=== PATIENT | male | born 1975 | race Two or more races ===

== ENCOUNTER 2020-07-31 08:19 | Outpatient (REF) | payer OTHER, SELFPAY ==
[2020-07-31 09:49] LABS: MANUAL DIFF FLAG NO
[2020-07-31 09:55] LABS: Basophils Absolute Auto 0.1 X10*3/uL (0.0-0.2); Basophils Percent Auto 0.8 % (0-2); Eosinophils Absolute Auto 0.2 X10*3/uL (0.0-0.4); Eosinophils Percent Auto 2.7 % (0-4); Hematocrit 46.6 % (42-52); Hemoglobin 15.1 g/dl (14.0-18.0); Imm Gran Abs Auto 0.03 X10*3/uL (0.00-0.03); Imm Gran Pct Auto 0.5 % (0.0-0.4); Lymphocytes Absolute Auto 2.1 X10*3/uL (1.2-4.9); Lymphocytes Percent Auto 33.3 % (20-40); Mean Corpuscular HGB Conc 32.4 g/dl (31.0-36.0); Mean Corpuscular Hemoglobin 30.1 pg (27.0-33.0); Mean Corpuscular Volume 92.8 fL (80-98); Mean Platelet Volume 9.3 fL (9.4-12.4); Monocytes Absolute Auto 0.6 X10*3/uL (0.1-1.2); Monocytes Percent Auto 9.3 % (2-11); Neutrophils Absolute Auto 3.3 X10*3/uL (2.0-8.3); Neutrophils Percent Auto 53.4 % (45-73); Platelet Count 251 X10*3/uL (160-400); Red Blood Count 5.02 X10*6/uL (4.60-5.80); Red Cell Distribution Width 13.4 % (11.0-16.0); White Blood Count 6.3 X10*3/uL (4.8-10.8)
[2020-07-31 10:16] LABS: Alanine Aminotransferase 63 U/L (0-40); Albumin Level 4.3 g/dL (3.5-5.0); Alkaline Phosphatase 100 U/L (39-117); Anion Gap 13 (12-20); Aspartate Amino Transferase 33 U/L (5-37); Bilirubin Total 0.3 mg/dL (0.0-1.0); Blood Urea Nitrogen 16 mg/dL (9-16); C Reactive Protein 0.97 mg/dL (< or = 0.50); Calcium 9.5 mg/dL (8.4-10.2); Carbon Dioxide 26 mmol/L (22-29); Chloride 105 mmol/L (96-108); Estimated Glomerular Filt Rate > 60; Glucose Random 104 mg/dL (60-115); Potassium 4.1 mmol/L (3.3-5.1); Sodium 140 mmol/L (135-145); Total Protein 7.9 g/dL (6.5-8.0)
[2020-07-31 10:57] LABS: Erythrocyte Sedimentation Rate 14 MM/HR (0-15)
[2020-08-01 07:55] LABS: ~HepC Num1 0.08 S/CO (0.00-0.79); ~Hepatitis C Antibody Nonreactive (Nonreactive)
[2020-08-01 08:44] LABS: HBS Num1 1.33 mIU/mL (0-7.99); HBc Num1 0.07 S/CO (0.00-0.79); HBsAGNum1 0.16 S/CO (0.00-0.99); Hepatitis A Antibody IgM 0.17 Index (0-0.79); Hepatitis B Core Antibody Nonreactive (Nonreactive); Hepatitis B Surface Antigen Negative (Negative); ~Hepatitis A Antibody IgM Nonreactive (Nonreactive); ~Hepatitis B Surface Antibody NONREACTIVE (Nonreactive)
== END 2020-07-31 08:20 | disposition home or self-care (01) ==
LOC: HO.LAB 08:19
PROVIDERS: PCP Internal Medicine; Visit Provider Student in an Organized Health Care Education/Training Program
DX: L40.50 Arthropathic psoriasis, unspecified (principal); L40.9 Psoriasis, unspecified
CPT/HCPCS: 20610; 36415; 80053; 85025; 85652; 86140; 86481; 86704; 86706; 86709; 86803; 87071; 87073; 87205; 87340; 89060; 99212

== ENCOUNTER 2020-09-25 15:30 | Outpatient (REF) | payer OTHER, SELFPAY ==
[2020-09-25 17:02] LABS: MANUAL DIFF FLAG NO
[2020-09-25 17:05] LABS: Basophils Percent Auto 1.2 % (0-2); Eosinophils Percent Auto 1.2 % (0-4); Hematocrit 47.6 % (42-52); Hemoglobin 15.5 g/dl (14.0-18.0); Imm Gran Abs Auto 0.03 X10*3/uL (0.00-0.03); Imm Gran Pct Auto 0.9 % (0.0-0.4); Lymphocytes Absolute Auto 1.4 X10*3/uL (1.2-4.9); Lymphocytes Percent Auto 39.4 % (20-40); Mean Corpuscular HGB Conc 32.6 g/dl (31.0-36.0); Mean Corpuscular Hemoglobin 30.3 pg (27.0-33.0); Mean Platelet Volume 9.4 fL (9.4-12.4); Monocytes Absolute Auto 0.7 X10*3/uL (0.1-1.2); Monocytes Percent Auto 19.7 % (2-11); Neutrophils Absolute Auto 1.3 X10*3/uL (2.0-8.3); Neutrophils Percent Auto 37.6 % (45-73); Platelet Count 247 X10*3/uL (160-400); Red Blood Count 5.12 X10*6/uL (4.60-5.80); Red Cell Distribution Width 13.2 % (11.0-16.0); White Blood Count 3.5 X10*3/uL (4.8-10.8)
[2020-09-25 17:33] LABS: Alanine Aminotransferase 93 U/L (0-40); Albumin Level 4.6 g/dL (3.5-5.0); Alkaline Phosphatase 106 U/L (39-117); Anion Gap 13 (12-20); Aspartate Amino Transferase 52 U/L (5-37); Bilirubin Total 0.3 mg/dL (0.0-1.0); Blood Urea Nitrogen 10 mg/dL (9-16); C Reactive Protein 0.88 mg/dL (< or = 0.50); Calcium 9.7 mg/dL (8.4-10.2); Carbon Dioxide 28 mmol/L (22-29); Chloride 103 mmol/L (96-108); Estimated Glomerular Filt Rate > 60; Glucose Random 92 mg/dL (60-115); Sodium 140 mmol/L (135-145); Total Protein 8.5 g/dL (6.5-8.0)
[2020-09-25 18:08] LABS: Erythrocyte Sedimentation Rate 14 MM/HR (0-15)
== END 2020-09-25 15:31 | disposition home or self-care (01) ==
LOC: HO.LAB 15:30
PROVIDERS: PCP Internal Medicine; Visit Provider Student in an Organized Health Care Education/Training Program
DX: L40.50 Arthropathic psoriasis, unspecified (principal); L40.9 Psoriasis, unspecified; I10 Essential (primary) hypertension
CPT/HCPCS: 36415; 80053; 85025; 85652; 86140; 99212

== ENCOUNTER 2021-02-11 10:21 | Outpatient (REF) | payer OTHER, SELFPAY ==
[2021-02-11 11:24] LABS: MANUAL DIFF FLAG NO
[2021-02-11 11:46] LABS: Basophils Percent Auto 0.7 % (0-2); Eosinophils Absolute Auto 0.3 X10*3/uL (0.0-0.4); Eosinophils Percent Auto 5.2 % (0-4); Hematocrit 46.6 % (42.0-52.0); Hemoglobin 15.4 g/dl (14.0-18.0); Imm Gran Abs Auto 0.03 X10*3/uL (0.00-0.03); Imm Gran Pct Auto 0.5 % (0.0-0.4); Lymphocytes Percent Auto 33.1 % (20-40); Mean Corpuscular Hemoglobin 30.6 pg (27.0-33.0); Mean Corpuscular Volume 92.5 fL (80.0-98.0); Mean Platelet Volume 9.1 fL (9.4-12.4); Monocytes Absolute Auto 0.5 X10*3/uL (0.1-1.2); Neutrophils Absolute Auto 3.1 x10*3/uL (2.0-8.3); Neutrophils Percent Auto 52.5 % (45-73); Platelet Count 249 X10*3/uL (160-400); Red Blood Count 5.04 X10*6/uL (4.60-5.80); Red Cell Distribution Width 13.2 % (11.0-16.0)
[2021-02-11 12:14] LABS: Alanine Aminotransferase 85 U/L (0-40); Albumin Level 4.3 g/dL (3.5-5.0); Alkaline Phosphatase 91 U/L (39-117); Anion Gap 10 (12-20); Aspartate Amino Transferase 36 U/L (5-37); Bilirubin Total 0.3 mg/dL (0.0-1.0); Blood Urea Nitrogen 13 mg/dL (9-16); Calcium 9.2 mg/dL (8.4-10.2); Carbon Dioxide 28 mmol/L (22-29); Chloride 105 mmol/L (96-108); Estimated Glomerular Filt Rate > 60; Glucose Random 95 mg/dL (60-115); Sodium 139 mmol/L (135-145); Total Protein 7.9 g/dL (6.5-8.0)
[2021-02-11 12:45] LABS: Erythrocyte Sedimentation Rate 7 MM/HR (0-15)
== END 2021-02-11 10:22 | disposition home or self-care (01) ==
LOC: HO.LAB 10:21
PROVIDERS: Absent Provider Physician Assistant Medical; PCP Internal Medicine; Visit Provider Nurse Practitioner Family
DX: L40.50 Arthropathic psoriasis, unspecified (principal); L40.0 Psoriasis vulgaris; L40.9 Psoriasis, unspecified; I10 Essential (primary) hypertension; E66.01 Morbid (severe) obesity due to excess calories; F17.210 Nicotine dependence, cigarettes, uncomplicated; F10.182 Alcohol abuse with alcohol-induced sleep disorder; F32.1 Major depressive disorder, single episode, moderate; Z68.41 Body mass index [BMI] 40.0-44.9, adult; Z88.8 Allergy status to other drugs, medicaments and biological substances; Z79.899 Other long term (current) drug therapy
CPT/HCPCS: 80053; 85025; 85652; 86140; 99212

== ENCOUNTER 2021-02-25 14:17 | Outpatient (REF) | payer OTHER, SELFPAY ==
[2021-02-25 14:29] LABS: MANUAL DIFF FLAG NO
[2021-02-25 14:58] LABS: Basophils Absolute Auto 0.1 X10*3/uL (0.0-0.2); Basophils Percent Auto 0.8 % (0-2); Eosinophils Absolute Auto 0.2 X10*3/uL (0.0-0.4); Eosinophils Percent Auto 2.9 % (0-4); Hematocrit 48.8 % (42.0-52.0); Hemoglobin 16.1 g/dl (14.0-18.0); Imm Gran Abs Auto 0.02 X10*3/uL (0.00-0.03); Imm Gran Pct Auto 0.3 % (0.0-0.4); Lymphocytes Absolute Auto 2.4 X10*3/uL (1.2-4.9); Lymphocytes Percent Auto 36.9 % (20-40); Mean Corpuscular Hemoglobin 30.7 pg (27.0-33.0); Mean Platelet Volume 9.1 fL (9.4-12.4); Monocytes Absolute Auto 0.6 X10*3/uL (0.1-1.2); Monocytes Percent Auto 8.8 % (2-11); Neutrophils Absolute Auto 3.2 x10*3/uL (2.0-8.3); Neutrophils Percent Auto 50.3 % (45-73); Platelet Count 245 X10*3/uL (160-400); Red Blood Count 5.25 X10*6/uL (4.60-5.80); White Blood Count 6.5 X10*3/uL (4.8-10.8)
[2021-02-25 15:16] LABS: Anion Gap 11 (12-20); Blood Urea Nitrogen 15 mg/dL (9-16); Carbon Dioxide 31 mmol/L (22-29); Chloride 100 mmol/L (96-108); Estimated Glomerular Filt Rate > 60; Glucose Random 85 mg/dL (60-115); Potassium 3.8 mmol/L (3.3-5.1); Sodium 138 mmol/L (135-145)
[2021-02-25 15:17] LABS: Alanine Aminotransferase 74 U/L (0-40); Albumin Level 4.7 g/dL (3.5-5.0); Alkaline Phosphatase 100 U/L (39-117); Aspartate Amino Transferase 38 U/L (5-37); Bilirubin Total 0.3 mg/dL (0.0-1.0); Total Protein 8.7 g/dL (6.5-8.0)
[2021-02-27 17:37] LABS: TS Negative Control Passed; TS Panel A 0; TS Panel B 0; TS Positive Control Passed; TSpotTB Negative (Negative)
== END 2021-02-25 14:18 | disposition home or self-care (01) ==
LOC: HO.LAB 14:17
PROVIDERS: PCP Internal Medicine; Visit Provider Physician Assistant Medical
DX: L40.0 Psoriasis vulgaris (principal); Z11.1 Encounter for screening for respiratory tuberculosis; Z79.899 Other long term (current) drug therapy
CPT/HCPCS: 36415; 80053; 85025; 86481

== ENCOUNTER 2021-04-07 13:24 | Outpatient (REF) | payer OTHER, SELFPAY ==
[2021-04-07 14:18] LABS: COVID-19 Test Positive (Negative)
== END 2021-04-07 13:25 | disposition home or self-care (01) ==
LOC: HO.LAB 13:24
PROVIDERS: Visit Provider Internal Medicine
DX: Z20.822 Contact with and (suspected) exposure to COVID-19 (principal)
CPT/HCPCS: 87635; C9803

== ENCOUNTER 2021-04-16 13:35 | Outpatient (REF) | payer OTHER, SELFPAY ==
[2021-04-16 14:09] LABS: Binax Internal Control QC Valid; Binax Now Covid-19 Ag Negative (Negative)
== END 2021-04-16 13:36 | disposition home or self-care (01) ==
LOC: HO.LAB 13:35
PROVIDERS: Visit Provider Internal Medicine
DX: Z20.822 Contact with and (suspected) exposure to COVID-19 (principal)
CPT/HCPCS: C9803

== ENCOUNTER → 2021-05-06 13:25 | Outpatient (BNVA) | payer OTHER, SELFPAY | PROVIDERS: PCP Internal Medicine; Visit Provider Nurse Practitioner Family | DX: L40.50 Arthropathic psoriasis, unspecified (principal); L40.9 Psoriasis, unspecified; I10 Essential (primary) hypertension | CPT/HCPCS: 99212 ==

== ENCOUNTER 2021-07-10 14:50 | Outpatient (REF) | payer OTHER, SELFPAY ==
[2021-07-10 15:06] LABS: MANUAL DIFF FLAG NO
[2021-07-10 15:46] LABS: Basophils Percent Auto 0.6 % (0-2); Eosinophils Absolute Auto 0.1 X10*3/uL (0.0-0.4); Eosinophils Percent Auto 2.1 % (0-4); Hematocrit 46.1 % (42.0-52.0); Hemoglobin 15.1 g/dl (14.0-18.0); Imm Gran Abs Auto 0.01 X10*3/uL (0.00-0.03); Imm Gran Pct Auto 0.2 % (0.0-0.4); Lymphocytes Absolute Auto 1.8 X10*3/uL (1.2-4.9); Lymphocytes Percent Auto 35.5 % (20-40); Mean Corpuscular HGB Conc 32.8 g/dl (31.0-36.0); Mean Corpuscular Hemoglobin 30.2 pg (27.0-33.0); Mean Corpuscular Volume 92.2 fL (80.0-98.0); Mean Platelet Volume 9.5 fL (9.4-12.4); Monocytes Absolute Auto 0.4 X10*3/uL (0.1-1.2); Monocytes Percent Auto 8.3 % (2-11); Neutrophils Absolute Auto 2.8 x10*3/uL (2.0-8.3); Neutrophils Percent Auto 53.3 % (45-73); Platelet Count 254 X10*3/uL (160-400); Red Cell Distribution Width 13.5 % (11.0-16.0); White Blood Count 5.2 X10*3/uL (4.8-10.8)
[2021-07-10 15:53] LABS: Alanine Aminotransferase 93 U/L (0-40); Albumin Level 4.4 g/dL (3.5-5.0); Alkaline Phosphatase 83 U/L (39-117); Anion Gap 11 (12-20); Aspartate Amino Transferase 49 U/L (5-37); Bilirubin Direct 0.2 mg/dL (0.0-0.5); Bilirubin Total 0.4 mg/dL (0.0-1.0); Blood Urea Nitrogen 13 mg/dL (9-16); Calcium 9.6 mg/dL (8.4-10.2); Carbon Dioxide 30 mmol/L (22-29); Chloride 103 mmol/L (96-108); Cholesterol 251 mg/dL; Estimated Glomerular Filt Rate > 60; Glucose Random 102 mg/dL (60-115); HDL Cholesterol 48 mg/dL; LDL Cholesterol Calculated 163 mg/dl; Potassium 3.6 mmol/L (3.3-5.1); Sodium 140 mmol/L (135-145); Total Protein 8.2 g/dL (6.5-8.0); Triglycerides 204 mg/dL
[2021-07-13 07:57] LABS: TS Negative Control Passed; TS Panel A 0; TS Panel B 0; TS Positive Control Passed; TSpotTB Negative (Negative)
== END 2021-07-10 14:51 | disposition home or self-care (01) ==
LOC: HO.LAB 14:50
PROVIDERS: Absent Provider Nurse Practitioner Family; PCP Internal Medicine; Visit Provider Dermatology
DX: Z11.1 Encounter for screening for respiratory tuberculosis (principal); L40.0 Psoriasis vulgaris; Z79.899 Other long term (current) drug therapy
CPT/HCPCS: 36415; 80048; 80061; 80076; 85025; 86481

== ENCOUNTER → 2021-08-04 14:39 | Outpatient (BNVA) | payer OTHER, SELFPAY | PROVIDERS: PCP Internal Medicine; Visit Provider Nurse Practitioner Family | DX: L40.50 Arthropathic psoriasis, unspecified (principal); L40.9 Psoriasis, unspecified; I10 Essential (primary) hypertension | CPT/HCPCS: 99212 ==

== ENCOUNTER → 2021-08-06 13:56 | Outpatient (BNVA) | payer OTHER, SELFPAY | PROVIDERS: PCP Internal Medicine; Referring Provider Internal Medicine; Visit Provider Surgery | DX: F10.10 Alcohol abuse, uncomplicated (principal); F32.1 Major depressive disorder, single episode, moderate; E66.01 Morbid (severe) obesity due to excess calories; L40.50 Arthropathic psoriasis, unspecified; L40.9 Psoriasis, unspecified; L91.8 Other hypertrophic disorders of the skin; I10 Essential (primary) hypertension | CPT/HCPCS: 99202 ==

== ENCOUNTER 2021-11-06 12:57 | Outpatient (REF) | payer OTHER, SELFPAY ==
[2021-11-06 13:15] LABS: MANUAL DIFF FLAG NO
[2021-11-06 13:21] LABS: Basophils Percent Auto 0.7 % (0-2); Eosinophils Absolute Auto 0.1 X10*3/uL (0.0-0.4); Eosinophils Percent Auto 2.2 % (0-4); Hemoglobin 15.3 g/dl (14.0-18.0); Imm Gran Abs Auto 0.04 X10*3/uL (0.00-0.03); Imm Gran Pct Auto 0.7 % (0.0-0.4); Lymphocytes Percent Auto 35.7 % (20-40); Mean Corpuscular HGB Conc 33.3 g/dl (31.0-36.0); Mean Corpuscular Hemoglobin 30.4 pg (27.0-33.0); Mean Corpuscular Volume 91.3 fL (80.0-98.0); Mean Platelet Volume 8.8 fL (9.4-12.4); Monocytes Absolute Auto 0.5 X10*3/uL (0.1-1.2); Neutrophils Absolute Auto 2.9 x10*3/uL (2.0-8.3); Neutrophils Percent Auto 51.7 % (45-73); Platelet Count 257 X10*3/uL (160-400); Red Blood Count 5.04 X10*6/uL (4.60-5.80); Red Cell Distribution Width 13.2 % (11.0-16.0); White Blood Count 5.6 X10*3/uL (4.8-10.8)
[2021-11-06 14:00] LABS: Alanine Aminotransferase 69 U/L (0-40); Aspartate Amino Transferase 30 U/L (5-37); C Reactive Protein 0.53 mg/dL (< or = 0.50); Estimated Glomerular Filt Rate > 60
[2021-11-06 14:13] LABS: Erythrocyte Sedimentation Rate 8 MM/HR (0-15)
== END 2021-11-06 12:58 | disposition home or self-care (01) ==
LOC: HO.LAB 12:57
PROVIDERS: PCP Internal Medicine; Referring Provider Internal Medicine; Visit Provider Nurse Practitioner Family
DX: L40.50 Arthropathic psoriasis, unspecified (principal); L40.9 Psoriasis, unspecified; I10 Essential (primary) hypertension; Z79.899 Other long term (current) drug therapy
CPT/HCPCS: 36415; 82565; 84450; 84460; 85025; 85652; 86140; 99212

== ENCOUNTER 2022-04-27 15:59 | Outpatient (REF) | payer OTHER, SELFPAY ==
[2022-04-27 16:12] LABS: MANUAL DIFF FLAG NO
[2022-04-27 17:03] LABS: Basophils Percent Auto 0.8 % (0-2); Eosinophils Absolute Auto 0.1 X10*3/uL (0.0-0.4); Eosinophils Percent Auto 1.7 % (0-4); Hematocrit 45.8 % (42.0-52.0); Imm Gran Abs Auto 0.02 X10*3/uL (0.00-0.03); Imm Gran Pct Auto 0.4 % (0.0-0.4); Lymphocytes Absolute Auto 1.8 X10*3/uL (1.2-4.9); Mean Corpuscular HGB Conc 32.8 g/dl (31.0-36.0); Mean Corpuscular Hemoglobin 30.1 pg (27.0-33.0); Mean Corpuscular Volume 91.8 fL (80.0-98.0); Mean Platelet Volume 9.4 fL (9.4-12.4); Monocytes Absolute Auto 0.5 X10*3/uL (0.1-1.2); Neutrophils Absolute Auto 2.8 x10*3/uL (2.0-8.3); Neutrophils Percent Auto 54.1 % (45-73); Platelet Count 283 X10*3/uL (160-400); Red Blood Count 4.99 X10*6/uL (4.60-5.80); Red Cell Distribution Width 13.2 % (11.0-16.0); White Blood Count 5.2 X10*3/uL (4.8-10.8)
[2022-04-27 17:32] LABS: Alanine Aminotransferase 39 U/L (0-40); Albumin Level 4.5 g/dL (3.5-5.0); Alkaline Phosphatase 133 U/L (39-117); Anion Gap 15 (12-20); Aspartate Amino Transferase 24 U/L (5-37); Bilirubin Direct < 0.2 mg/dL (0.0-0.5); Bilirubin Total 0.6 mg/dL (0.0-1.0); Blood Urea Nitrogen 10 mg/dL (9-16); Calcium 9.3 mg/dL (8.4-10.2); Carbon Dioxide 26 mmol/L (22-29); Chloride 103 mmol/L (96-108); Cholesterol 211 mg/dL; Estimated Glomerular Filt Rate > 60; Glucose Random 96 mg/dL (60-115); HDL Cholesterol 50 mg/dL; LDL Cholesterol Calculated 136 mg/dl; Sodium 140 mmol/L (135-145); Total Protein 8.2 g/dL (6.5-8.0); Triglycerides 128 mg/dL
[2022-04-28 18:18] LABS: LDL Cholesterol Direct 146 mg/dL (<100)
== END 2022-04-27 16:00 | disposition home or self-care (01) ==
LOC: HO.LAB 15:59
PROVIDERS: PCP Internal Medicine; Visit Provider Physician Assistant Medical
DX: Z00.00 Encounter for general adult medical examination without abnormal findings (principal); L40.0 Psoriasis vulgaris; E78.5 Hyperlipidemia, unspecified; Z79.899 Other long term (current) drug therapy
CPT/HCPCS: 36415; 80048; 80061; 80076; 83721; 85025

== ENCOUNTER 2022-05-07 14:34 | Outpatient (REF) | payer OTHER, SELFPAY ==
[2022-05-07 15:26] LABS: Alanine Aminotransferase 64 U/L (0-40); Albumin Level 4.5 g/dL (3.5-5.0); Alkaline Phosphatase 125 U/L (39-117); Anion Gap 14 (12-20); Aspartate Amino Transferase 34 U/L (5-37); Bilirubin Total 0.5 mg/dL (0.0-1.0); Blood Urea Nitrogen 11 mg/dL (9-16); Calcium 9.5 mg/dL (8.4-10.2); Carbon Dioxide 27 mmol/L (22-29); Chloride 104 mmol/L (96-108); Cholesterol 234 mg/dL; Estimated Glomerular Filt Rate > 60; Glucose Fasting 91 mg/dL (60-99); HDL Cholesterol 53 mg/dL; LDL Cholesterol Calculated 160 mg/dl; Potassium 4.4 mmol/L (3.3-5.1); Sodium 141 mmol/L (135-145); Total Protein 8.3 g/dL (6.5-8.0); Triglycerides 108 mg/dL
== END 2022-05-07 14:35 | disposition home or self-care (01) ==
LOC: HO.LAB 14:34
PROVIDERS: PCP Internal Medicine; Visit Provider Internal Medicine
DX: Z00.00 Encounter for general adult medical examination without abnormal findings (principal); E78.5 Hyperlipidemia, unspecified
CPT/HCPCS: 36415; 80053; 80061

== ENCOUNTER 2022-09-16 14:45 | Outpatient (REF) | payer OTHER, SELFPAY ==
[2022-09-18 17:03] LABS: TS Negative Control Passed; TS Panel A 1; TS Panel B 0; TS Positive Control Passed; TSpotTB Negative (Negative)
== END 2022-09-16 14:46 | disposition home or self-care (01) ==
LOC: HO.LAB 14:45
PROVIDERS: PCP Internal Medicine; Visit Provider Physician Assistant Medical
DX: L40.0 Psoriasis vulgaris (principal); Z79.899 Other long term (current) drug therapy
CPT/HCPCS: 36415; 86481

== ENCOUNTER 2023-04-29 12:31 | Outpatient (REF) | payer OTHER, SELFPAY ==
[2023-04-29 12:44] LABS: MANUAL DIFF FLAG NO
[2023-04-29 13:20] LABS: Basophils Absolute Auto 0.1 X10*3/uL (0.0-0.2); Basophils Percent Auto 0.7 % (0-2); Eosinophils Absolute Auto 0.2 X10*3/uL (0.0-0.4); Eosinophils Percent Auto 2.8 % (0-4); Hematocrit 46.9 % (42.0-52.0); Hemoglobin 15.4 g/dl (14.0-18.0); Imm Gran Abs Auto 0.03 X10*3/uL (0.00-0.03); Imm Gran Pct Auto 0.4 % (0.0-0.4); Lymphocytes Absolute Auto 3.1 X10*3/uL (1.2-4.9); Lymphocytes Percent Auto 41.3 % (20-40); Mean Corpuscular HGB Conc 32.8 g/dl (31.0-36.0); Mean Corpuscular Hemoglobin 29.8 pg (27.0-33.0); Mean Corpuscular Volume 90.9 fL (80.0-98.0); Mean Platelet Volume 8.9 fL (9.4-12.4); Monocytes Absolute Auto 0.5 X10*3/uL (0.1-1.2); Neutrophils Absolute Auto 3.6 x10*3/uL (2.0-8.3); Neutrophils Percent Auto 47.8 % (45-73); Platelet Count 298 X10*3/uL (160-400); Red Blood Count 5.16 X10*6/uL (4.60-5.80); White Blood Count 7.5 X10*3/uL (4.8-10.8)
[2023-04-29 13:57] LABS: Alanine Aminotransferase 33 U/L (0-40); Albumin Level 4.3 g/dL (3.5-5.0); Alkaline Phosphatase 113 U/L (39-117); Anion Gap 10 (12-20); Aspartate Amino Transferase 16 U/L (5-37); Bilirubin Direct 0.1 mg/dL (0.0-0.5); Bilirubin Total 0.3 mg/dL (0.0-1.0); Blood Urea Nitrogen 11 mg/dL (9-16); Calcium 9.5 mg/dL (8.4-10.2); Carbon Dioxide 28 mmol/L (22-29); Chloride 103 mmol/L (96-108); Estimated Glomerular Filt Rate > 60; Glucose Random 98 mg/dL (60-115); Potassium 3.7 mmol/L (3.3-5.1); Sodium 137 mmol/L (135-145); Total Protein 8.5 g/dL (6.5-8.0)
== END 2023-04-29 12:32 | disposition home or self-care (01) ==
LOC: HO.LAB 12:31
PROVIDERS: Absent Provider Internal Medicine; PCP Internal Medicine; Visit Provider Physician Assistant Medical
DX: L40.0 Psoriasis vulgaris (principal)
CPT/HCPCS: 36415; 80048; 80076; 85025

== ENCOUNTER 2023-05-05 17:26 | Outpatient (AMB) | payer OTHER, SELFPAY ==
--- NOTE | 2023-05-05 17:26 | A.OFFPC_ITS ---
Vital Signs 05/05/23 17:27 05/05/23 19:47 Height 5 ft 10 in Weight 301 lb BMI 43.2 BP 148/100 H 145/90 H Blood Pressure Location Lt brachial Lt brachial Position Sitting Sitting Intake Visit Reasons: PE Intake Note: Patient here for a physical exam Certified Hand Therapist Required: No Accompanied by: Self / Same As Patient Allergies hydrocortisone [HYDROCORTISONE] Allergy (Intermediate, Verified 05/05/23 17:40) rash apremilast [Otezla] Adverse Reaction (Intermediate, Verified 05/05/23 17:40) depression lisinopril Adverse Reaction (Intermediate, Verified 05/05/23 17:40) cough Medication List - Last Reconciled 05/05/23 by Colette Suárez MD adalimumab (Humira(CF) Pen) inject one - 40 mg/0.4 mL pen every week subcut amlodipine 10 mg PO DAILY 90 days betamethasone dipropionate 0.05% topical losartan 100 mg PO DAILY 90 days Tobacco use date assessed: 05/05/23 Dental Screening Dental Screen Date: 05/05/23 Did you have a dental visit in the last 12 months?: No Did you have a dental problem in the last 6 months where you did not have access to dental care?: No Was dental information given to patient?: Patient has dentist HPI HPI Comments History of Present Illness Details This is a 47-year-old male with moderate major depression, morbid obesity on psoriatic arthritis that comes for his physical exam. Depression is present but he declines any treatment including counseling or medications. He is morbidly obese with a BMI of 43.2 and was advised to diet and exercise. He declines weight loss surgery. Psoriatic arthritis stable with medication. He declines colonoscopy but is willing to do Cologuard. 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 Moderate major depression, single episode Morbid obesity Psoriasis Psoriatic arthritis Surgical History S/P left knee arthroscopy H/O elbow surgery Family History Mother Asthma Father Diabetes Sister Multiple sclerosis Maternal Uncle Substance use disorder Social History Housing: Apartment Alcohol intake: current Alcohol intake frequency: a few times a week Alcohol type: beer Patient Tobacco Use Status: Current someday Tobacco user Tobacco use type: Cigarette Cigarettes Per Day: 1 Years Smoked: 35 e-Cigarette/Vaping Use: Never Used Second Hand Smoke Exposure: No service: No Current occupational status: employed Current occupational exposures/hazards: No Cognitive needs: No Hearing needs: No Vision needs: No Questionnaire PHQ-9 Over the last 2 weeks, how often have you been bothered by any of the following problems? 1. Little interest or pleasure in doing things: nearly every day 2. Feeling down, depressed, or hopeless: nearly every day 3. Trouble falling or staying asleep, or sleeping too much: several days 4. Feeling tired or having little energy: nearly every day 5. Poor appetite or overeating: nearly every day 6. Feeling bad about yourself - or that you are a failure or have let yourself or your family down: nearly every day 7. Trouble concentrating on things, such as reading the newspaper or watching television: not at all 8. Moving or speaking so slowly that other people could have noticed. Or the opposite - being so fidgety or restless that you have been moving around a lot more than usual: not at all 9. Thoughts that you would be better off or of hurting yourself in some way: not at all Total score: 16 Depression Screening Interpretation: Positive (no suicidal thoughts) Depression Screening Follow-up: Existing condition and Declines treatment Depression Screening Done: Yes 85740 - PHQ-9 Billing: Yes Source: Developed by Drs. Christiano Zimmer, Danna Aguirre, Raheem Melgoza and colleagues, with an educational cathie from [employer]. Thrive Questionnaire Date Thrive assessed: 05/05/23 I am a: Patient What is your living situation today?: I have a steady place to live Within the past 12 months, did the food you bought not last and you didn't have the money to get more?: Never true Within the past 12 months, did you worry whether your food would run out before you got money to buy more?: Never true Do you have trouble paying for medicines?: No Do you have trouble getting transportation to medical appointments?: No Do you have trouble paying your heating and electricity bill?: No Do you have trouble taking care of your child, family member or friend?: No Do you have trouble with day-to-day activities such as bathing, preparing meals, shopping, managing finances, etc.?: No Are you currently unemployed and looking for a job?: No Are you interested in more education?: No Please select the resources that you would like help with: None Currently or been in a relationship where the following occur: no concerns reported THRIVE Score: 0 AUDIT C Alcohol Use Questionnaire (AUDIT-C) 1. How often do you have a drink containing alcohol?: 2-4 times a month 2. How many drinks containing alcohol do you have on a typical day when you are drinking?: 10 or more 3. How often do you have six or more drinks on one occasion?: Weekly Total Score: 9 Score Reviewed/Action Taken: Yes NAI-7 AMB Questionnaire NAI-7 Date NAI - 7 assessed: 05/05/23 Feeling nervous, anxious, or on edge: 1 = Several days Not being able to stop or control worryin = Several days Worrying too much about different things: 3 = Nearly every day Trouble relaxin = Not at all Being so restless that it is hard to sit still: 0 = Not at all Becoming easily annoyed or irritable: 3 = Nearly every day Feeling afraid as if something awful might happen: 0 = Not at all Total NAI-7 score (0-4 normal; 5-9 mild; 10-14 moderate; 15-21 severe): 8 Source: Developed by Drs. Christiano Zimmer, Danna Aguirre, Raheem Melgoza and colleagues, with an educational cathie from [employer]. NAI-7 Assessment Billing NAI-7 Assessment Tool: NAI-7 Assessment 06199 Review of Systems Const All systems reviewed & are unremarkable except as noted in HPI and below Eyes Reports no additional complaints, Denies change in vision and Denies other visual disturbances Card Denies chest pain at rest, Denies chest pain with activity, Denies edema, Denies irregular heart rhythm, Denies claudication, Denies dyspnea, Denies dyspnea on exertion, Denies orthopnea, Denies paroxysmal nocturnal dyspnea and Denies slow heart rate Resp Denies cough, Denies dyspnea and Denies dyspnea on exertion GI Denies abdominal pain, Denies change in bowel habits, Denies excessive flatus, Denies nausea and Denies vomiting Denies urinary hesitancy, Denies urinary incontinence and Denies urinary urgency Musc Denies abnormal gait, Denies atrophy, Denies deformity and Denies limited range of motion Skin/Breast Denies bleeding lesions, Denies changing lesions and Denies rash Neuro Denies abnormal gait, Denies behavioral changes, Denies confusion and Denies lack of coordination Psych Denies behavioral changes and Denies confusion Physical exam (Primary Care) Vital Signs: Last Vital Signs BP 148/100 H 05/05/23 17:27 BMI result Body Mass Index 43.2 Tobacco/Smoking Status: Tobacco use Status Tobacco use date assessed 05/05/23 05/05/23 17:35 Patient Tobacco Use Status Current someday Tobacco 05/05/23 17:35 Tobacco use type Cigarette 05/05/23 17:35 e-Cigarette/Vaping Use Never Used 05/05/23 17:35 PHQ-9: PHQ-9 Score PHQ-9: Total score 16 05/05/23 17:45 Depression Screening Interpretation: Positive (no suicidal thoughts) Depression Screening Follow-up: Existing condition and Declines treatment Thrive Assessment: Date of Thrive Assessment Date Thrive assessed 05/05/23 05/05/23 17:35 Currently or been in a relationship where the following occur: no concerns reported Const General: No confusion Orientation/consciousness: patient oriented x3 and No confusion HENWY Head: Yes normal to inspection, Yes normocephalic and Yes atraumatic Ears: external ears normal Eyes General: appearance normal, both eyes and all related structures Eyelids: Yes eyelids normal Conjunctivae: conjunctivae normal Neck Neck: Yes normal visual inspection and Yes supple Resp Effort & Inspection: normal respiratory effort Auscultation: clear to auscultation bilaterally Cardio Jugular venous distension: no JVD Rate: regular rate Rhythm: regular rhythm Heart sounds: S1 normal heart sound present and S2 normal heart sound present GI Inspection: Yes normal to inspection Palpation (GI): Soft to palpation and nontender Auscultation: normal bowel sounds Skin General skin exam: no rashes or lesions noted Neuro General: patient oriented x3, no focal motor deficits and No confusion Extrem General: Yes full ROM Psych Appearance: grossly normal Assessment and Plan Assessment & Plan (1) Physical exam: Code(s): Z00.00 - Encounter for general adult medical examination without abnormal findings Plan: Repeat in a year. (2) Morbid obesity: Code(s): E66.01 - Morbid (severe) obesity due to excess calories Plan: Start diet and exercise. BMI goal is less than 30. (3) Moderate major depression, single episode: Code(s): F32.1 - Major depressive disorder, single episode, moderate Plan: Consider counseling. (4) Psoriatic arthritis: Code(s): L40.50 - Arthropathic psoriasis, unspecified Plan: Continue Humira. Orders: Referrals Cologuard Test Z12.11 - Encounter for screening for malignant neoplasm of colon, Z12.12 - Encounter for screening for malignant neoplasm of rectum Coding Level of Care Code Est Pt Prev Care 40-64y(23232) Diagnoses Physical exam Z00.00 Morbid obesity E66.01 Moderate major depression, single episode F32.1 Psoriatic arthritis L40.50 Additional Codes NAI-7 Assessment Billing - NAI-7 Assessment Tool: NAI-7 Assessment 62195 ([id number]) Time Spent (min) 35
[2023-05-05 17:27] VITALS: BP 148/100; BMI 43.2
[2023-05-05 19:47] VITALS: BP 145/90
== END 2023-05-05 17:52 | disposition home or self-care (01) ==
LOC: HO.HMGH 17:26
PROVIDERS: PCP Internal Medicine; Visit Provider Internal Medicine
DX: Z00.00 Encounter for general adult medical examination without abnormal findings (principal); E66.01 Morbid (severe) obesity due to excess calories; F32.1 Major depressive disorder, single episode, moderate; Z68.41 Body mass index [BMI] 40.0-44.9, adult; L40.50 Arthropathic psoriasis, unspecified
CPT/HCPCS: 99396

== ENCOUNTER 2023-11-10 16:39 | Outpatient (AMB) | payer OTHER, SELFPAY ==
[2023-11-10 16:49] VITALS: BP 152/90; BMI 42.6
--- NOTE | 2023-11-10 16:49 | MHC.PC.OV ---
Vital Signs 11/10/23 16:49 Height 5 ft 10 in Weight 297 lb BMI 42.6 BP 152/90 H Blood Pressure Location Lt brachial Position Sitting Intake Visit Reasons: bp Intake Note: Patient here for a follow up BP It Security Manager Required: No Accompanied by: Self / Same As Patient Allergies hydrocortisone [HYDROCORTISONE] Allergy (Intermediate, Verified 11/10/23 16:50) rash apremilast [Otezla] Adverse Reaction (Intermediate, Verified 11/10/23 16:50) depression lisinopril Adverse Reaction (Intermediate, Verified 11/10/23 16:50) cough Tobacco use date assessed: 05/05/23 Dental Screening Dental Screen Date: 05/05/23 HPI HPI Comments History of Present Illness Details This is a 48-year-old male with uncontrolled hypertension, psoriatic arthritis, morbid obesity and moderate major depression that comes today for follow-up on his conditions. Blood pressure elevated and he refused to take another medication or follow blood pressure. He is aware that elevated blood pressure can cause heart attack, stroke or . Psoriatic arthritis stable with medications and follow by Dermatology. He is morbidly obese with a BMI of 42.6 and was advised to do diet and exercise. He declines weight loss surgery. I will start him on Wegovy. Side effects such as abdominal pain and vomiting were advised. Depression is present but he declines medication or counseling. He is drinking more and was advised to cut down on drinking. He was offer a referral for comprehensive Care Center due to alcoholism and he declined it. 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 Moderate major depression, single episode Morbid obesity Psoriasis Psoriatic arthritis Surgical History S/P left knee arthroscopy H/O elbow surgery Family History Mother Asthma Father Diabetes Sister Multiple sclerosis Maternal Uncle Substance use disorder Social History Housing: Apartment Alcohol intake: current Alcohol intake frequency: a few times a week Alcohol type: beer Patient Tobacco Use Status: Current someday Tobacco user Tobacco use type: Cigarette Cigarettes Per Day: 1 Years Smoked: 35 e-Cigarette/Vaping Use: Never Used Second Hand Smoke Exposure: No service: No Current occupational status: employed Current occupational exposures/hazards: No Cognitive needs: No Hearing needs: No Vision needs: No Questionnaire Thrive Questionnaire Date Thrive assessed: 05/05/23 AUDIT C Alcohol Use Questionnaire (AUDIT-C) 1. How often do you have a drink containing alcohol?: 2-3 times a week 2. How many drinks containing alcohol do you have on a typical day when you are drinking?: 10 or more 3. How often do you have six or more drinks on one occasion?: Weekly Total Score: 10 Score Reviewed/Action Taken: Yes NAI-7 AMB Questionnaire NAI-7 Date NAI - 7 assessed: 05/05/23 Source: Developed by Drs. Christiano Zimmer, Danna Aguirre, Raheem Melgoza and colleagues, with an educational cathie from [employer]. Review of Systems Const All systems reviewed & are unremarkable except as noted in HPI and below Card Denies chest pain at rest, Denies chest pain with activity, Denies edema, Denies irregular heart rhythm, Denies claudication, Denies dyspnea, Denies dyspnea on exertion, Denies orthopnea, Denies paroxysmal nocturnal dyspnea and Denies slow heart rate Resp Denies cough, Denies dyspnea and Denies dyspnea on exertion GI Denies abdominal pain, Denies change in bowel habits, Denies excessive flatus, Denies nausea and Denies vomiting Denies urinary hesitancy, Denies urinary incontinence and Denies urinary urgency Musc Denies abnormal gait, Denies atrophy, Denies deformity and Denies limited range of motion Skin/Breast Reports lesions Neuro Denies abnormal gait and Denies lack of coordination Psych Reports depression and Reports anhedonia Physical exam (Primary Care) Vital Signs: Last Vital Signs BP 152/90 H 11/10/23 16:49 BMI result Body Mass Index 42.6 BMI Assessment/Plan discussion: High BMI High, discussed plan: lifestyle, weight reduction, dietary, physical activity and alcohol moderation Tobacco/Smoking Status: Tobacco use Status Tobacco use date assessed 05/05/23 11/10/23 16:52 Patient Tobacco Use Status Current someday Tobacco 11/10/23 16:52 Tobacco use type Cigarette 11/10/23 16:52 e-Cigarette/Vaping Use Never Used 11/10/23 16:52 Are you ready to quit: No Tobacco cessation counseling provided: Yes Items discussed: [employer]uit[employer] Relapse Prevention: discussed the importance of a supportive environment, discussed negative mood or depression after quitting, weight gain after smoking is common and discussed dietary, exercise and/or lifestyle changes Number of minutes spent counselin CPT code: 09715 - 4-10 Minutes Thrive Assessment: Date of Thrive Assessment Date Thrive assessed 05/05/23 11/10/23 16:52 Resp Effort & Inspection: normal respiratory effort Auscultation: clear to auscultation bilaterally Cardio Jugular venous distension: no JVD Rate: regular rate Rhythm: regular rhythm Heart sounds: S1 normal heart sound present and S2 normal heart sound present Extrem General: Yes full ROM Assessment and Plan Assessment & Plan (1) Moderate major depression, single episode: Code(s): F32.1 - Major depressive disorder, single episode, moderate Plan: Declines treatment. (2) Morbid obesity: Code(s): E66.01 - Morbid (severe) obesity due to excess calories Plan: Start Wegovy. BMI goal is less than 30. (3) Uncontrolled hypertension: Code(s): I10 - Essential (primary) hypertension Plan: Continue losartan and amlodipine. Blood pressure goal is equal or less than 130/80. Patient declined to have a 3rd medication for elevated blood pressure and he is aware that he can have a heart attack or stroke due to this elevated blood pressure. (4) Psoriatic arthritis: Code(s): L40.50 - Arthropathic psoriasis, unspecified Plan: Continue Humira. Orders: Orders Lipid Panel 11/10/23 E78.5 - Hyperlipidemia, unspecified, I10 - Essential (primary) hypertension Comprehensive [place]. Panel Fast 11/10/23 I10 - Essential (primary) hypertension Medications: New semaglutide (weight loss) (Wegovy) administer weeks 1 through 4 of therapy 0.25 mg (0.5 mL) subcut QWEEK 2 mL 0RF 4 weeks E66.01 - Morbid (severe) obesity due to excess calories Coding Level of Care Code Est Pt Level 4 (68566) Complex EM visit Add On G2211 Diagnoses Moderate major depression, single episode F32.1 Morbid obesity E66.01 Uncontrolled hypertension I10 Psoriatic arthritis L40.50 Additional Codes Vital Signs *Quality* - CPT code: 46243 - 4-10 Minutes ([id number]) Time Spent (min) 25
== END 2023-11-10 17:12 | disposition home or self-care (01) ==
PROVIDERS: PCP Internal Medicine; Visit Provider Internal Medicine
DX: I10 Essential (primary) hypertension (principal); F32.1 Major depressive disorder, single episode, moderate; E66.01 Morbid (severe) obesity due to excess calories; Z68.42 Body mass index [BMI] 45.0-49.9, adult; L40.50 Arthropathic psoriasis, unspecified
CPT/HCPCS: 99214; G2211

== ENCOUNTER → 2024-01-03 14:36 | Outpatient (BNVA) | payer OTHER, SELFPAY | PROVIDERS: PCP Internal Medicine; Visit Provider Physician Assistant Surgical ==

== ENCOUNTER 2024-02-09 11:21 | Outpatient (REF) | payer OTHER, SELFPAY ==
[2024-02-12 07:43] LABS: TS Negative Control Passed; TS Panel A 0; TS Panel B 0; TS Positive Control Passed; TSpotTB Negative (Negative)
== END 2024-02-09 11:22 | disposition home or self-care (01) ==
LOC: HO.LAB 11:21
PROVIDERS: Physician Assistant Medical; Absent Provider Dermatology; PCP Internal Medicine; Visit Provider Internal Medicine
DX: L40.0 Psoriasis vulgaris (principal)
CPT/HCPCS: 36415; 86481

== ENCOUNTER 2024-05-08 16:42 | Outpatient (AMB) | payer OTHER, SELFPAY ==
--- OUTSIDE RECORDS SUMMARY | 2024-05-08 16:47 | XMS_ITS | Clinical Summary ---
Author Organization [facility] ity Address [address] [place] [address] Care Team Providers Care Psychiatric Assistant Name Role Phone Leroy Seymour MD Primary Care Provider [phone] Allergies No known active allergies Active Problems Problem Noted Date Diagnosed Date Psoriasis 06/03/2005 Depression 06/03/2005 Medical History Medical History Date Comments Other psoriasis and similar disorders 06/03/2005 DX:Other psoriasis and similar disorders Depressive disorder, not els ewhere classified 06/03/2005 DX:Depressive disorder, not elsewhere classified Family History Medical History Relation Name Comments Diabetes Brother 1 Diabetes Father Asthma Maternal Grandmother Asthma Mother Relation Name Status Comments Brother 1 Brother 2 Father Maternal Grandmother Mother Social History Tobacco Use Types Packs/Day Years Used Date Smoking Tobacco: Every Day Cigarettes Alcohol Use Standard Drinks/Week Comments Not Asked 0 (1 standard drink = 0.6 oz pur e alcohol) Sex and Gender Information Value Date Recorded Sex Assigned at Not on file Legal Sex Male 4:57 PM EST Gender Identity Not on file Sexual Orientation Not on file Obstetrics History Plan of Treatment Health Maintenance Due Date Last Done Comments DTaP,Tdap,and Td Vaccines (1 - Tdap) 1996 Hepatitis B Vaccines (1 of 3 - 19+ 3-dose series) 1996 Pneumococcal Vaccine: Pediat rics (0 to 5 Years) and At-Risk Patients (6 to 64 Years) (1 of 2 - PCV) 1996 COVID-19 Vaccine (2023-2 5 season) 2023 Influenza Vaccine (#1) 2023 Cholesterol Screening (Lipid Panel) 03/09/2024 Colorectal Cancer Screening: Colonoscopy 03/09/2024 Depression Screening 03/09/2024 HIV Screening 03/09/2024 Hepatitis C Screening 03/09/2024 Social Influencers of Health Screening 03/09/2024 HIB Vaccines Aged Out No longer eligi ble based on patient's age to complete this topic HPV Vaccines Aged Out No longer eligi ble based on patient's age to complete this topic Hepatitis A Vaccines Aged Out No long er eligible based on patient's age to complete this topic IPV Vaccines Aged Out No longer eligi ble based on patient's age to complete this topic MMR Vaccines Aged Out No longer eligi ble based on patient's age to complete this topic Meningococcal ACWY Vaccine Aged Out N o longer eligible based on patient's age to complete this topic Meningococcal B Vacine Aged Out No lo nger eligible based on patient's age to complete this topic RSV Immunization Patients Un felix 20 months Aged Out No longer eligible b ased on patient's age to complete this topic Varicella Vaccines Aged Out No longer eligible based on patient's age to complete this topic Care Teams Psychiatric Assistant Relationship Specialty Start Date End Date Leroy Seymour MD PCP - General 08/02/05
--- NOTE | 2024-05-08 17:00 | MHC.PC.OV ---
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 Required: No Accompanied by: Self / Same As Patient Allergies hydrocortisone [HYDROCORTISONE] Allergy (Intermediate, Verified 05/08/24 17:23) rash apremilast [Otezla] Adverse Reaction (Intermediate, Verified 05/08/24 17:23) depression lisinopril Adverse Reaction (Intermediate, Verified 05/08/24 17:23) cough Medication List - Last Reconciled 05/08/24 by Colette Suárez MD adalimumab (Humira(CF) Pen) inject one - 40 mg/0.4 mL pen every week subcut amlodipine 10 mg PO DAILY 90 days betamethasone dipropionate 0.05% topical losartan 100 mg PO DAILY 90 days Tobacco use date assessed: 05/08/24 Dental Screening Dental Screen Date: 05/08/24 Did you have a dental visit in the last 12 months?: No Did you have a dental problem in the last 6 months where you did not have access to dental care?: No Was dental information given to patient?: Patient has dentist HPI HPI Comments History of Present Illness Details The patient is a 48-year-old male presenting for an annual physical examination. He has a history of psoriatic arthritis, which reportedly started after his younger brother developed it severely. He also has hypertension and is currently on medication but has reduced his intake, leading to good control. The patient reports a history of depression with a noticeable lack of interest in daily activities and personal grooming. He denies any past stroke or heart attack, which impacts his eligibility for certain medications for obesity and related conditions. In his family, his father had diabetes and , and a sister has multiple sclerosis. The patient denies any familial history of psoriasis aside from his brother. He smoked approximately 17 cigarettes per day, particularly when drinking alcohol, and drinks alcohol once a week, primarily beer with some hard liquor. 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 Moderate major depression, single episode Morbid obesity Psoriasis Psoriatic arthritis Surgical History S/P left knee arthroscopy H/O elbow surgery Family History Mother Asthma Father Diabetes Sister Multiple sclerosis Maternal Uncle Substance use disorder Social History (Updated 05/08/24 @ 17:32 by Colette Suárez MD) Housing: Apartment Alcohol intake: current Alcohol intake frequency: a few times a month Alcohol type: beer and hard liquor Patient Tobacco Use Status: Current someday Tobacco user Tobacco use type: Cigarette Cigarettes Per Day: 10 Years Smoked: 35 e-Cigarette/Vaping Use: Never Used Second Hand Smoke Exposure: No service: No Current occupational status: employed Current occupational exposures/hazards: No Cognitive needs: No Hearing needs: No Vision needs: No Questionnaire PHQ-9 Over the last 2 weeks, how often have you been bothered by any of the following problems? 1. Little interest or pleasure in doing things: nearly every day 2. Feeling down, depressed, or hopeless: nearly every day 3. Trouble falling or staying asleep, or sleeping too much: more than half the days 4. Feeling tired or having little energy: more than half the days 5. Poor appetite or overeating: nearly every day 6. Feeling bad about yourself - or that you are a failure or have let yourself or your family down: several days 7. Trouble concentrating on things, such as reading the newspaper or watching television: several days 8. Moving or speaking so slowly that other people could have noticed. Or the opposite - being so fidgety or restless that you have been moving around a lot more than usual: not at all 9. Thoughts that you would be better off or of hurting yourself in some way: not at all Total score: 15 Depression Screening Interpretation: Positive (no suicidal thoughts) Depression Screening Follow-up: Existing condition and Follow-up Visit Requested Depression Screening Done: Yes 54076 - PHQ-9 Billing: Yes Source: Developed by Drs. Christiano Zimmer, Danna Aguirre, Raheem Melgoza and colleagues, with an educational cathie from [employer]. Thrive Questionnaire Date Thrive assessed: 05/08/24 I am a: Patient What is your living situation today?: I have a steady place to live Within the past 12 months, did the food you bought not last and you didn't have the money to get more?: I choose not to answer this question Within the past 12 months, did you worry whether your food would run out before you got money to buy more?: Never true Do you have trouble paying for medicines?: No Do you have trouble getting transportation to medical appointments?: No Do you have trouble paying your heating and electricity bill?: No Do you have trouble taking care of your child, family member or friend?: No Do you have trouble with day-to-day activities such as bathing, preparing meals, shopping, managing finances, etc.?: No Are you currently unemployed and looking for a job?: No Are you interested in more education?: No Please select the resources that you would like help with: None Currently or been in a relationship where the following occur: No concerns reported THRIVE Score: 0 AUDIT C Alcohol Use Questionnaire (AUDIT-C) 1. How often do you have a drink containing alcohol?: 2-3 times a week 2. How many drinks containing alcohol do you have on a typical day when you are drinking?: 3 or 4 3. How often do you have six or more drinks on one occasion?: Weekly Total Score: 7 NAI-7 AMB Questionnaire NAI-7 Date NAI - 7 assessed: 05/08/24 Feeling nervous, anxious, or on edge: 3 = Nearly every day Not being able to stop or control worryin = Nearly every day Worrying too much about different things: 2 = More than half the days Trouble relaxin = More than half the days Being so restless that it is hard to sit still: 1 = Several days Becoming easily annoyed or irritable: 1 = Several days Feeling afraid as if something awful might happen: 0 = Not at all Total NAI-7 score (0-4 normal; 5-9 mild; 10-14 moderate; 15-21 severe): 12 Source: Developed by Drs. Christiano Zimmer, Danna Aguirre, Raheem Melgoza and colleagues, with an educational cathie from [employer]. NAI-7 Assessment Billing NAI-7 Assessment Tool: NAI-7 Assessment 37522 Review of Systems Const All systems reviewed & are unremarkable except as noted in HPI and below Card Denies chest pain at rest, Denies chest pain with activity, Denies edema, Denies irregular heart rhythm, Denies claudication, Denies dyspnea, Denies dyspnea on exertion, Denies orthopnea, Denies paroxysmal nocturnal dyspnea and Denies slow heart rate Resp Denies cough, Denies dyspnea and Denies dyspnea on exertion Physical exam (Primary Care) Vital Signs: Last Vital Signs BP 130/80 05/08/24 17:01 BMI result Body Mass Index 44.2 BMI Assessment/Plan discussion: High BMI High, discussed plan: lifestyle, weight reduction, dietary and physical activity Tobacco/Smoking Status: Tobacco use Status Tobacco use date assessed 05/08/24 05/08/24 17:12 Patient Tobacco Use Status Current someday Tobacco 05/08/24 17:32 Tobacco use type Cigarette 05/08/24 17:32 e-Cigarette/Vaping Use Never Used 05/08/24 17:32 PHQ-9: PHQ-9 Score PHQ-9: Total score 15 05/08/24 17:40 Depression Screening Interpretation: Positive (no suicidal thoughts) Depression Screening Follow-up: Existing condition and Follow-up Visit Requested Thrive Assessment: Date of Thrive Assessment Date Thrive assessed 05/08/24 05/08/24 17:12 Currently or been in a relationship where the following occur: No concerns reported [facility] Head: Yes normal to inspection, Yes normocephalic and Yes atraumatic Ears: external ears normal Eyes General: appearance normal, both eyes and all related structures Eyelids: Yes eyelids normal Conjunctivae: conjunctivae normal Neck Neck: Yes normal visual inspection and Yes supple Resp Effort & Inspection: normal respiratory effort Auscultation: clear to auscultation bilaterally Cardio Jugular venous distension: no JVD Rate: regular rate Rhythm: regular rhythm Heart sounds: S1 normal heart sound present and S2 normal heart sound present GI Inspection: Yes normal to inspection Palpation (GI): Soft to palpation and nontender Auscultation: normal bowel sounds Skin General skin exam: no rashes or lesions noted Neuro General: no focal motor deficits Extrem General: Yes full ROM Psych Appearance: grossly normal Office Procedures Flu Questionnaire Does the patient have a severe egg allergy?: No Immunizations Fluarix Triv [id number] (PF) 45 mcg (15 mcg x 3)/0.5 mL IM syringe Performing Provider: Colette Suárez MD Performing Location: [facility] Documented (not given) by: TEDDY Johnson on 05/08/24 17:14 Reason Not Given: Patient Refused Coding Level of Care Code Est Pt Prev Care 40-64y(78345) Diagnoses Physical exam Z00.00 Moderate major depression, single episode F32.1 Morbid obesity E66.01 Psoriatic arthritis L40.50 Additional Codes NAI-7 Assessment Billing - NAI-7 Assessment Tool: NAI-7 Assessment 95720 ([id number]) PHQ-9 - 27838 - PHQ-9 Billing: Yes ([id number]) Time Spent (min) 31 Assessment & Plan Assessment & Plan (1) Physical exam: Code(s): Z00.00 - Encounter for general adult medical examination without abnormal findings Category: Medical (2) Moderate major depression, single episode: Code(s): F32.1 - Major depressive disorder, single episode, moderate Category: Medical (3) Morbid obesity: Code(s): E66.01 - Morbid (severe) obesity due to excess calories Category: Medical (4) Psoriatic arthritis: Code(s): L40.50 - Arthropathic psoriasis, unspecified Category: Medical Plan - Comprehensive blood work to assess sugar, cholesterol, and thyroid function. - Continue current antihypertensive medications and evaluate the need for adjustment based on adherence. - Discuss potential therapeutic adjustments for depression considering patient's self-reported symptoms. - Explore additional options for weight management, given patient's obesity and co-morbid conditions. - Discuss the risks and benefits of reducing smoking and alcohol consumption as part of a general health improvement plan. Patient was informed and verbally consented to the use of an ambient scribe for clinic note documentation during this visit. I discussed with the patient the importance of medication adherence, especially regarding blood pressure management. We highlighted the potential impact of obesity and related medication eligibility constraints due to lack of a cardiovascular event history. We explored alternative avenues for weight management considering related co-morbidities, including depression and lack of motivation. We also discussed the current lifestyle factors such as smoking and alcohol use and their implications on his overall health. The plan for comprehensive blood work was agreed upon to further evaluate thyroid function, glucose, and lipid levels. Orders: Orders Influenza [id number] Immunization Today Z23 - Encounter for immunization Lipid Panel Today E78.5 - Hyperlipidemia, unspecified Comprehensive [place]. Panel Fast Today Z00.00 - Encounter for general adult medical examination without abnormal findings Thyroid Stimulating Hormone Today E66.01 - Morbid (severe) obesity due to excess calories Patient Instructions: - Continue to monitor and take hypertension medications as prescribed, adjusting as necessary. - Attend scheduled blood work for further evaluation and management planning. - Consider reducing cigarette and alcohol intake for overall health improvement. - Return for follow-up based on blood work results and any changes in symptoms.
[2024-05-08 17:01] VITALS: BP 130/80; BMI 44.2
== END 2024-05-08 17:38 | disposition home or self-care (01) ==
PROVIDERS: PCP Internal Medicine; Visit Provider Internal Medicine
DX: Z00.00 Encounter for general adult medical examination without abnormal findings (principal); F32.1 Major depressive disorder, single episode, moderate; E66.01 Morbid (severe) obesity due to excess calories; Z68.41 Body mass index [BMI] 40.0-44.9, adult; L40.50 Arthropathic psoriasis, unspecified; Z23 Encounter for immunization

== ENCOUNTER → 2024-05-08 16:42 | Outpatient (BNVA) | payer OTHER, SELFPAY | PROVIDERS: PCP Internal Medicine; Visit Provider Internal Medicine | DX: Z00.00 Encounter for general adult medical examination without abnormal findings (principal); F32.1 Major depressive disorder, single episode, moderate; E66.01 Morbid (severe) obesity due to excess calories; Z68.41 Body mass index [BMI] 40.0-44.9, adult; L40.50 Arthropathic psoriasis, unspecified; Z71.3 Dietary counseling and surveillance | CPT/HCPCS: 96127; 99396 ==

== ENCOUNTER 2024-10-22 16:34 | Outpatient (AMB) | payer OTHER, SELFPAY ==
--- OUTSIDE RECORDS SUMMARY | 2024-10-22 16:36 | XMS_ITS | Clinical Summary ---
Author Organization [facility] ity Address [address] [place] [address] Care Team Providers Care Local Driver Name Role Phone Leroy Seymour MD Primary Care Provider [phone] Allergies No known active allergies Active Problems [...] 5 Years) and At-Risk Patients (6 to 49 Years) (1 of 2 - PCV) 1996 COVID-19 Vaccine (2023-2 5 season) 2023 Cholesterol Screening (Lipid Panel) 03/09/2024 Colorectal Cancer Screening: Colonoscopy 03/09/2024 HIV Screening 03/09/2024 Hepatitis C Screening 03/09/2024 Social Influencers of Health Screening 03/09/2024 Depression Screening 03/21/2024 Influenza Vaccine (#1) 2024 HIB Vaccines Aged Out No longer eligi [...] age to complete this topic Meningococcal B Vaccine Aged Out No l onger eligible based on patient's age to complete this topic RSV Immunization Patients Un felix 20 months Aged Out No longer eligible b ased on patient's age to complete this topic Varicella Vaccines Aged Out No longer eligible based on patient's age to complete this topic Care Teams Local Driver Relationship Specialty Start Date End Date Leroy Seymour MD PCP - General 08/02/05
--- NOTE | 2024-10-22 16:37 | MHC.PC.OV ---
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 Required: No Accompanied by: Self / Same As Patient Allergies hydrocortisone (HYDROCORTISONE) Allergy (Intermediate, Verified 10/22/24 16:42) rash apremilast (Otezla) Adverse Reaction (Intermediate, Verified 10/22/24 16:42) depression lisinopril Adverse Reaction (Intermediate, Verified 10/22/24 16:42) cough Medication List - Last Reconciled 10/22/24 by Colette Suárez MD adalimumab (Humira(CF) Pen) inject one - 40 mg/0.4 mL pen every week subcut amlodipine 10 mg PO DAILY 90 days betamethasone dipropionate 0.05% topical losartan 100 mg PO DAILY 90 days Tobacco use date assessed: 05/08/24 Dental Screening Dental Screen Date: 05/08/24 HPI HPI Comments History of Present Illness Details The patient is a 49-year-old male presenting with elevated blood pressure for follow-up. He has a history of hypertension and is compliant with his medications. The patient also has psoriatic arthritis, which is well controlled with Humira, and he follows up with dermatology for this condition. Additionally, he suffers from major depressive disorder but declines any medications or counseling at this time. The patient is moderately obese with a BMI of 43.2, and he is attempting to manage his weight through diet and exercise. 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 Moderate major depression, single episode Morbid obesity Psoriasis Psoriatic arthritis Surgical History S/P left knee arthroscopy H/O elbow surgery Family History Mother Asthma Father Diabetes Sister Multiple sclerosis Maternal Uncle Substance use disorder Social History (Updated 10/22/24 @ 16:46 by Colette Suárez MD) Housing: Apartment Alcohol intake: current Alcohol intake frequency: a few times a month Alcohol type: beer and hard liquor Patient Tobacco Use Status: Current everyday Tobacco user Tobacco use type: Cigarette Cigarettes Per Day: 10 Years Smoked: 35 e-Cigarette/Vaping Use: Never Used Second Hand Smoke Exposure: No service: No Current occupational status: employed Current occupational exposures/hazards: No Cognitive needs: No Hearing needs: No Vision needs: No Questionnaire Thrive Questionnaire Date Thrive assessed: 05/01/24 I am a: Patient What is your living situation today?: I have a steady place to live Within the past 12 months, did the food you bought not last and you didn't have the money to get more?: I choose not to answer this question Within the past 12 months, did you worry whether your food would run out before you got money to buy more?: Never true Do you have trouble paying for medicines?: No Do you have trouble getting transportation to medical appointments?: No Do you have trouble paying your heating and electricity bill?: No Do you have trouble taking care of your child, family member or friend?: No Do you have trouble with day-to-day activities such as bathing, preparing meals, shopping, managing finances, etc.?: No Are you currently unemployed and looking for a job?: No Are you interested in more education?: No Please select the resources that you would like help with: None Currently or been in a relationship where the following occur: No concerns reported THRIVE Score: 0 NAI-7 AMB Questionnaire NAI-7 Date NAI - 7 assessed: 05/08/24 Source: Developed by Drs. Christiano Zimmer, Danna Aguirre, Raheem Melgoza and colleagues, with an educational cathie from [employer]. Review of Systems Const All systems reviewed & are unremarkable except as noted in HPI and below Card Denies chest pain at rest, Denies chest pain with activity, Denies edema, Denies irregular heart rhythm, Denies claudication, Denies dyspnea, Denies dyspnea on exertion, Denies orthopnea, Denies paroxysmal nocturnal dyspnea and Denies slow heart rate Resp Denies cough, Denies dyspnea and Denies dyspnea on exertion GI Denies abdominal pain, Denies change in bowel habits, Denies excessive flatus, Denies nausea and Denies vomiting Denies urinary hesitancy, Denies urinary incontinence and Denies urinary urgency Musc Denies abnormal gait, Denies atrophy, Denies deformity and Denies limited range of motion Skin/Breast Denies bleeding lesions, Denies changing lesions and Denies rash Neuro Denies abnormal gait and Denies lack of coordination Physical exam (Primary Care) Vital Signs: Last Vital Signs BP 132/80 10/22/24 16:38 BMI result Body Mass Index 43.2 BMI Assessment/Plan discussion: High BMI High, discussed plan: lifestyle, weight reduction, dietary and physical activity Tobacco/Smoking Status: Tobacco use Status Tobacco use date assessed 05/08/24 05/08/24 17:12 Patient Tobacco Use Status Current someday Tobacco 05/08/24 17:32 Tobacco use type Cigarette 05/08/24 17:32 e-Cigarette/Vaping Use Never Used 05/08/24 17:32 Thrive Assessment: Date of Thrive Assessment Date Thrive assessed 05/01/24 10/15/24 14:32 Currently or been in a relationship where the following occur: No concerns reported Resp Effort & Inspection: normal respiratory effort Auscultation: clear to auscultation bilaterally Cardio Jugular venous distension: no JVD Rate: regular rate Rhythm: regular rhythm Heart sounds: S1 normal heart sound present and S2 normal heart sound present Extrem General: Yes full ROM Coding Level of Care Code Est Pt Level 4 (72883) Complex EM visit Add On G2211 Diagnoses Moderate major depression, single episode F32.1 Morbid obesity E66.01 Hypertension I10 Psoriatic arthritis L40.50 Time Spent (min) 23 Assessment & Plan Assessment & Plan (1) Moderate major depression, single episode: Code(s): F32.1 - Major depressive disorder, single episode, moderate Category: Medical (2) Morbid obesity: Code(s): E66.01 - Morbid (severe) obesity due to excess calories Category: Medical (3) Hypertension: Code(s): I10 - Essential (primary) hypertension Category: Medical (4) Psoriatic arthritis: Code(s): L40.50 - Arthropathic psoriasis, unspecified Category: Medical Plan The patient will continue to manage his hypertension with current medications, as he is compliant and denies any symptoms such as chest pain or dyspnea. He will maintain follow-up with dermatology for his psoriatic arthritis, which is well controlled with Humira. For his major depressive disorder, the patient has declined medications and counseling at this time, and no changes will be made to his current management plan. The patient is encouraged to continue with diet and exercise to manage his obesity, with a BMI of 43.2. Patient was informed and verbally consented to the use of an ambient scribe for clinic note documentation during this visit. Orders: Orders Lipid Panel 6 Months E78.5 - Hyperlipidemia, unspecified Comprehensive [place]. Panel Fast 6 Months I10 - Essential (primary) hypertension
[2024-10-22 16:38] VITALS: BP 132/80; BMI 43.2
== END 2024-10-22 16:51 | disposition home or self-care (01) ==
LOC: HO.HMCH 16:35
PROVIDERS: PCP Internal Medicine; Visit Provider Internal Medicine
DX: I10 Essential (primary) hypertension (principal); L40.50 Arthropathic psoriasis, unspecified; F32.1 Major depressive disorder, single episode, moderate; E66.01 Morbid (severe) obesity due to excess calories; Z68.41 Body mass index [BMI] 40.0-44.9, adult

== ENCOUNTER → 2024-10-22 16:34 | Outpatient (BNVA) | payer OTHER, SELFPAY | PROVIDERS: PCP Internal Medicine; Visit Provider Internal Medicine | DX: F32.1 Major depressive disorder, single episode, moderate (principal); E66.01 Morbid (severe) obesity due to excess calories; Z68.41 Body mass index [BMI] 40.0-44.9, adult; I10 Essential (primary) hypertension; L40.50 Arthropathic psoriasis, unspecified; Z79.620 Long term (current) use of immunosuppressive biologic | CPT/HCPCS: 99212 ==

== ENCOUNTER 2024-11-22 11:59 | Outpatient (REF) | payer OTHER, SELFPAY ==
[2024-11-22 12:43] LABS: Appearance Urine Clear; Glucose Urine UA Negative (Negative); PH 6.0 (5.0-9.0); Specific Gravity - Urine 1.025 (1.005-1.025); UMIC TRIGGER UACC YES
[2024-11-22 12:45] LABS: UACC Culture Trigger YES
--- OUTSIDE RECORDS SUMMARY | 2024-11-22 13:35 | XMS_ITS | Clinical Summary ---
Author Organization [facility] ity Address [address] [place] [address] Care Team Providers Care Attending Urologist Name Role Phone Leroy Seymour MD Primary Care Provider [phone] Allergies No known active allergies Active Problems [...] age to complete this topic Care Teams Attending Urologist Relationship Specialty Start Date End Date Leroy Seymour MD PCP - General 08/02/05
== END 2024-11-22 12:00 | disposition home or self-care (01) ==
LOC: HO.LAB 11:59
PROVIDERS: PCP Internal Medicine; Visit Provider Internal Medicine
DX: R31.9 Hematuria, unspecified (principal)
CPT/HCPCS: 81001; 87086

== ENCOUNTER 2024-12-27 14:05 | Outpatient (AMB) | payer OTHER, SELFPAY ==
--- NOTE | 2024-12-27 14:05 | A.OFFVIS_ITS ---
Intake Visit Reasons: Hematuria Intake Note: New Patient is present for Hematuria Urology Rx:none Blood Thinners:none Imaging completed: none Smoker: yes Staker Surveying Required: No Accompanied by: Self / Same As Patient Allergies hydrocortisone (HYDROCORTISONE) Allergy (Intermediate, Verified 12/27/24 14:06) rash apremilast (Otezla) Adverse Reaction (Intermediate, Verified 12/27/24 14:06) depression lisinopril Adverse Reaction (Intermediate, Verified 12/27/24 14:06) cough HPI Comments Details: Haseeb is a pleasant male. He is a patient of Dr. Suárez. 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, single episode Morbid obesity Psoriasis Psoriatic arthritis Surgical History S/P left knee arthroscopy H/O elbow surgery Family History Mother Asthma Father Diabetes Sister Multiple sclerosis Maternal Uncle Substance use disorder Social History (Updated 10/22/24 @ 16:46 by Colette Suárez MD) Housing: Apartment Alcohol intake: current Alcohol intake frequency: a few times a month Alcohol type: beer and hard liquor Patient Tobacco Use Status: Current everyday Tobacco user Tobacco use type: Cigarette Cigarettes Per Day: 10 Years Smoked: 35 e-Cigarette/Vaping Use: Never Used Second Hand Smoke Exposure: No service: No Current occupational status: employed Current occupational exposures/hazards: No Cognitive needs: No Hearing needs: No Vision needs: No Review of Systems Const Denies chills and Denies fever(s) Card Reports no additional complaints and Denies syncope Resp Denies cough GI Denies abdominal pain and Denies heartburn Reports as per HPI and Denies change in libido Neuro Denies syncope Psych Denies change in libido Endo Denies change in libido Physical Exam Const General: cooperative, healthy appearing, comfortable and no acute distress Orientation/consciousness: patient oriented x3 HEENT Face and sinus: Yes normal facial exam Mouth: moist mucous membranes Neck Neck: Yes normal visual inspection, Yes full ROM and Yes trachea midline Chest Chest palpation & inspection: normal inspection of the chest Resp Effort & Inspection: normal respiratory effort, able to speak in complete sentences and no respiratory distress GI Inspection: Yes normal to inspection Back/Spine/Pelvis Cervical Spine: normal cervical lordosis Thoracic/Lumbar Spine: thoracic and lumbar spine normal to inspection Skin General skin exam: no rashes or lesions noted Neuro General: patient oriented x3, gait normal, tone normal and moves all extremities Extrem General: Yes normal to inspection and Yes capillary refill normal Assessment & Plan Assessment & Plan (1) Gross hematuria: Code(s): R31.0 - Gross hematuria Category: Medical Plan Check cystoscopy Orders: Orders AMB Urinalysis Automated Today R31.9 - Hematuria, unspecified Patient Instructions: This note is constructed using voice recognition software. While every effort has been made to ensure accuracy construction job titles errors may have been included. Imaging studies, laboratory and physical exam results were discussed and reviewed in detail. No major barriers to patient understanding were identified. An opportunity to ask questions regarding the treatment plan was provided. All questions were answered. The patient expressed understanding and agreement with the above treatment plan. The patient is aware they should contact our office by phone for worsening of their current condition or the appearance of new urologic symptoms. Compliance is encouraged with any medications and followup testing that is ordered. It is a privilege to participate in the urologic care of your patient. If you have any questions or concerns regarding treatment for the above conditions, or other urologic issues, please do not hesitate to contact me. The office telephon e contact is [phone]. Sincerely, Dr Jose Armstrong MD, [facility] - Urology Compassionate Specialist Care for the Genitourinary System Coding Level of Care Code New Pt Level 3 (52128) Diagnoses Gross hematuria R31.0
== END 2024-12-27 14:31 | disposition home or self-care (01) ==
LOC: HO.HUSH 14:06
PROVIDERS: PCP Internal Medicine; Visit Provider Urology
DX: R31.0 Gross hematuria (principal); R31.9 Hematuria, unspecified
CPT/HCPCS: 99203

== ENCOUNTER → 2024-12-27 14:05 | Outpatient (BNVA) | payer OTHER, SELFPAY | PROVIDERS: PCP Internal Medicine; Visit Provider Urology | DX: R31.0 Gross hematuria (principal) | CPT/HCPCS: 81003; 99202 ==

== ENCOUNTER 2025-01-17 15:28 | Outpatient (REF) | payer OTHER, SELFPAY ==
[2025-01-17 15:48] LABS: MANUAL DIFF FLAG NO
[2025-01-17 17:23] LABS: Hematocrit 47.5 % (42.0-52.0); Hemoglobin 15.2 g/dl (14.0-18.0); Imm Gran Abs Auto 0.03 X10*3/uL (0.00-0.03); Imm Gran Pct Auto 0.4 % (0.0-0.4); Lymphocytes Absolute Auto 2.6 X10*3/uL (1.2-4.9); Mean Corpuscular HGB Conc 32.0 g/dl (31.0-36.0); Mean Corpuscular Hemoglobin 29.9 pg (27.0-33.0); Mean Corpuscular Volume 93.5 fL (80.0-98.0); NRBC Abs Auto 0.000 X10*3/uL (0.0-0.012); NRBC Pct Auto 0.0 /100WBC (0.0-0.2); Platelet Count 288 X10*3/uL (160-400); Red Blood Count 5.08 X10*6/uL (4.60-5.80); White Blood Count 7.9 X10*3/uL (4.8-10.8)
--- OUTSIDE RECORDS SUMMARY | 2025-01-17 18:00 | XMS_ITS | Clinical Summary ---
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 Name Role Phone Leroy Seymour MD Primary Care Provider Allergies No known active allergies Active Problems [...] Health Maintenance Due Date Last Done Comments Colorectal Cancer Screening: Colonoscopy 1977 DTaP,Tdap,and Td Vaccines (1 - Tdap) 1996 Hepatitis B Vaccines (1 of 3 - 19+ 3-dose series) 1996 Pneumococcal Vaccine: Pediat rics (0 to 5 Years) and At-Risk Patients (6 to 49 Years) (1 of 2 - PCV) 1996 Cholesterol Screening (Lipid Panel) 03/09/2024 HIV Screening 03/09/2024 Hepatitis C Screening 03/09/2024 Social Influencers of Health Screening 03/09/2024 Depression Screening 03/21/2024 COVID-19 Vaccine ( - 2023-2 5 season) 2024 Influenza Vaccine (#1) 2024 RSV Immunization Adult Patie nts (1 - 1-dose 75+ series) 2052 HIB Vaccines Aged Out No longer eligi [...] age to complete this topic Care Teams 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
[2025-01-17 18:06] LABS: Alanine Aminotransferase 105 U/L (0-40); Albumin Level 4.8 g/dL (3.5-5.0); Alkaline Phosphatase 115 U/L (39-117); Aspartate Amino Transferase 37 U/L (5-37); Total Protein 8.8 g/dL (6.5-8.0)
[2025-01-20 02:29] LABS: TS Negative Control Passed; TS Panel A 2; TS Panel B 1; TS Positive Control Passed; TSpotTB Negative (Negative)
== END 2025-01-17 15:29 | disposition home or self-care (01) ==
LOC: HO.LAB 15:28
PROVIDERS: PCP Internal Medicine; Visit Provider Physician Assistant Medical
DX: L40.59 Other psoriatic arthropathy (principal); Z79.899 Other long term (current) drug therapy
CPT/HCPCS: 36415; 80076; 85025; 86481

== ENCOUNTER 2025-01-29 13:37 | Outpatient (REF) | payer OTHER, SELFPAY ==
--- NOTE | ~2025-01-29 | US_ITS ---
EXAMINATION: US RETROPERITONEAL LIMITED (RENAL ONLY) CLINICAL INFORMATION: R31.9. Hematuria.. COMPARISON: Correlated to Limited ultrasound dated October 24, 2018. TECHNIQUE: Real-time ultrasound kidneys using grayscale technique. FINDINGS: RIGHT KIDNEY: 12 x 6 x 6 cm (SAG x AP x TRV). Normal echotexture. Renal cortical thickness is normal. No hydronephrosis. No solid or cystic lesion. LEFT KIDNEY: 12 x 7 x 6 cm (SAG x AP x TRV). Normal echotexture. Renal cortical thickness is normal. No hydronephrosis. No solid or cystic lesion. US/US renal BI IMPRESSION: Normal renal ultrasound.. Electronically signed by: Chato Bella MD 01/29/2025 02:06 PM [email or web address]
--- OUTSIDE RECORDS SUMMARY | 2025-01-29 15:16 | XMS_ITS | Clinical Summary ---
Author Organization [facility] Address [address] [place] [address] Care Team Providers Care Rn Gastroenterology Name Role Phone Leroy Seymour MD Primary Care Provider [phone] Allergies No known active allergies Active Problems [...] Screening 03/09/2024 Depression Screening 03/21/2024 COVID-19 Vaccine (1 - 2024-2 6 season) 2024 Influenza Vaccine (#1) 2024 RSV [...] age to complete this topic Care Teams Rn Gastroenterology Relationship Specialty Start Date End Date Leroy Seymour MD PCP - General 08/02/05
== END 2025-01-29 13:38 | disposition home or self-care (01) ==
LOC: HO.US 13:37
PROVIDERS: PCP Internal Medicine; Visit Provider Internal Medicine
DX: R31.9 Hematuria, unspecified (principal)
CPT/HCPCS: 76775

== ENCOUNTER → 2025-01-29 13:39 | Outpatient (BNV) | payer OTHER, SELFPAY | PROVIDERS: PCP Internal Medicine; Visit Provider Radiology Diagnostic Radiology | DX: R31.9 Hematuria, unspecified (principal) | CPT/HCPCS: 76775 ==